=== PATIENT | male | born 1960 | race African-American/Black ===

== ENCOUNTER 2023-11-05 10:45 | Emergency (ER) | payer OTHER, MEDICARE, SELFPAY ==
[2023-11-05 10:46] VITALS: BP 131/93; PULSE 74; RESP 19; TEMP 36.4; O2SAT 98; BMI 39.8
[2023-11-05 10:51] VITALS: BP 131/93; PULSE 76; O2SAT 98
--- NOTE | 2023-11-05 10:55 | PC.NURSE ---
Dr. Cristina at bedside
--- NOTE | 2023-11-05 10:55 | PC.NURSE ---
in room talking with patient at this time.
--- NOTE | 2023-11-05 10:56 | PC.NURSE ---
DR MCNAMARA AT BEDSIDE
[2023-11-05 11:00] VITALS: BP 121/88; PULSE 74; O2SAT 97
--- NOTE | 2023-11-05 11:00 | XR_ITS ---
FINAL REPORT CLINICAL HISTORY: joint line pain and swelling FINDINGS: LEFT KNEE 3 views of the left knee were obtained. There is no acute fracture or dislocation. There are moderate degenerative changes. A moderate-sized joint effusion is seen. Visualized joint spaces are normally aligned. Soft tissues are unremarkable. IMPRESSION: No acute bony abnormality. Reviewed, Interpreted and Dictated by Ramirez Curry III, MD Transcribed by Crystal Hanna Authenticated and [facility]
--- NOTE | 2023-11-05 11:01 | ED_ITS ---
Discharge Plan Disposition Patient Disposition: Home, Self-Care Prescriptions Prescriptions: New prednisone 20 mg tablet 40 mg PO DAILY 5 Days Qty: 10 0RF diclofenac sodium [Arthritis Pain (diclofenac)] 1 % gel 2 g topical QID Qty: 100 0RF Rx Instructions: apply to single elbow, wrist or hand; for hand includes palm/fingers/back of hand Referrals Follow up/Referrals: Bharti Mesa MD [Primary Care Provider] - See instructions Activity Restrictions/Add. Instructions Additional Instructions/Restrictions: Family doctor regarding this visit to the emergency department. Prednisone each daily for 5 days. Diclofenac cream can be applied up to 4 times daily. Talk to your orthopedic surgeon for further evaluation of your left knee. Call your family doctor to establish care for this visit to the emergency department and schedule follow-up within 48 hours to ensure improvement. If you have any worsening of your condition or any other concerning signs or symptoms, return to the emergency department or your primary care doctor for further evaluation. Clinical Impressions Clinical Impression: Acute pain of left knee Discharge ED Provider: Wicho Cristina General Adult HPI General Chief complaint: Extremity Injury, Lower Stated complaint: left knee pain Time Seen by Provider: 11/05/23 10:47 History of Present Illness HPI narrative: Please note that above description of symptoms, in this electronic medical record under categorization of recalled from ER triage doctor by RN are reflective of an initial nursing assessment, however, is not reflective of my full history and physical exam that was personally taken and clarified. Consequentially, this preceding description of symptoms, which may include the patient's categorized chief complaint in the EMR, do not reflect my personal clinical impression, and the ultimate description of history of present illness and patient stated complaints should be deferred to this section of the note. Unless stated otherwise or congruent with this section of the note, additional signs, symptoms, or incongruence should be interpreted as inaccurate with my c linical impression. Related Data Previous Rx's Medication Instructions Recorded diclofenac sodium 1 % topical gel 2 g topical QID #100 grams 11/05/23 (Arthritis Pain (diclofenac)) prednisone 20 mg tablet 40 mg (2 x 20 mg) PO DAILY 5 days 11/05/23 #10 tabs Allergies Allergy/AdvReac Type Severity Reaction Status Date / Time No Known Allergies Allergy Verified 11/05/23 11:09 [facility] Disclaimer: The information contained in this section may have been updated after the patient was seen, as this information can be updated by other users. Social History Smoking Status: Former smoker alcohol intake: never current occupational status: retired Travel in the last 8 weeks: None ROS Obtained: Yes All systems reviewed & no additional complaints except as documented Physical Exam General General appearance: alert and in no apparent distress Head Head exam: atraumatic and normocephalic Eye Eye exam: Present normal appearance, PERRL and EOMI ENT ENT exam: Present mucous membranes moist Neck Neck exam: Present normal inspection, full ROM and trachea midline Respiratory Respiratory exam: Absent respiratory distress, wheezes, stridor, accessory muscle use or prolonged expiratory phase Cardiovascular Cardiovascular exam: Present normal rhythm Abdominal Exam Abdominal exam: Present soft; Absent distention, tenderness, guarding, rebound or rigidity Extremities Exam Extremities exam: Present other (Tenderness about left knee and joint space. No obvious effusion. Mildly more swollen than right side. Neurovascular and structurally intact. Range of motion intact. Patient ambulatory); Absent edema Neurological Exam Neurological exam: Present alert, oriented X3, CN II-XII intact and normal gait; Absent motor sensory deficit Skin Skin exam: Present warm and dry; Absent diaphoresis or erythema Medical Decision Making Medical Records Medical records reviewed: Yes I reviewed the patient's medical records. Roberto Inquiry Pt receiving controlled substance: No Roberto was queried for this patient: No Vital Signs: 11/05/23 10:46 11/05/23 10:51 11/05/23 11:00 Temperature 97.5 F L Temperature Source Oral Pulse Rate 76 74 Pulse Rate [Right] 74 Respiratory Rate 19 Blood Pressure 131/93 H 121/88 Blood Pressure [Right Arm] 131/93 H Blood Pressure Mean [Right Arm] 105 Blood Pressure Source [Right Arm] Automatic Cuff 02 Sat by Pulse Oximetry 98 98 97 Oxygen Delivery Method Room Air 11/05/23 11:31 Temperature Temperature Source Pulse Rate 71 Pulse Rate [Right] Respiratory Rate Blood Pressure 106/77 L Blood Pressure [Right Arm] Blood Pressure Mean [Right Arm] Blood Pressure Source [Right Arm] 02 Sat by Pulse Oximetry 98 Oxygen Delivery Method Orders (Tests/Meds): ED MEDICATIONS Discontinued Medications Generic Name Dose Route Start Last Admin Trade Name Freq PRN Reason Stop Dose Admin Prednisone 40 mg 11/05/23 11:00 11/05/23 11:10 Prednisone 20mg Tab PO 11/05/23 11:01 40 mg ONCE ONE Administration ORDERS Category Date Time Status Knee XR left 3 views [XR knee LT 3V] Stat Exams 11/05/23 11:00 Taken Medical Decision Narrative: Is a very pleasant 63-year-old male history of hypertension, PTSD, osteoarthritis having had right hip replaced, chronic left knee pain presenting with acute on chronic left knee pain. Patient states has been hurting on and off since he left the service. Was moving furniture about 2 weeks prior to this visit, did not have any immediate pain, started having pain in his left knee 2 days prior to this visit. Primarily in the joint space, no range of motion difficulties, it is mild to moderate in intensity, worse when bearing weight. Has not taken anything for the pain. Denies weakness, back pain, fevers or chills. History was obtained via conversation with patient. On arrival, patient hemodynamically stable, alert, oriented x4, appropriate, GCS 15, moving all extremities spontaneously, pupils equal and reactive to light. Full physical exam performed and significant for ambulatory male who does not appear to be in any acute distress. Neurovascular intact left lower extremity, range of motion intact. Tenderness primarily along joint space, left knee. No tenderness with patellar glide, no tenderness along patellar ligament or tendon, structurally intact and provocative testing overall negative.. Differential includes osteoarthritis, meniscus injury, malignancy, among others. Patient was given prednisone p.o. 40 mg for symptomatic management and correction of underlying abnormalities. Workup independently interpreted and significant for no acute bony abnormality of the left knee that was imaged. See radiology read for full review of final results. Given patient's history and physical exam, this most likely represents osteoarthritis. Is recommended that he follows up with his orthopedic surgeon did his hip for further evaluation for physical therapy and possible replacement if no other results with PT. Voiced his understanding. Because patient at baseline without signs or symptoms of clinical decompensation, deemed appropriate for discharge. Results were relayed to patient who voiced understanding and were agreeable to outpatient management and follow up. I discussed my clinical impression with patient and answered all questions. At this time, the evidence for any other entities in the differential is insufficient to warrant any further testing or ED observation. This was explained as well. Advisory was given that persistent or worsening symptoms require further evaluation. I confirmed the understanding of this discussion. Operations And Maintenance Specialist disclaimer Much of this encounter note is an electronic furnace room supervisor spoken language to printed text. Electronic furnace room supervisor of the spoken language may permit errors. Although I have reviewed the note, some errors may still exist. Critical Care Critical Care Time Critical Care Time: No
[2023-11-05] MEDS: predniSONE 20MG TAB 40 MG PO (11:10)
[2023-11-05 11:31] VITALS: BP 106/77; PULSE 71; O2SAT 98
--- NOTE | 2023-11-05 11:40 | PC.NURSE ---
PT TO XR
--- NOTE | 2023-11-05 11:46 | PC.NURSE ---
PT RETURNED FROM XR
--- NOTE | 2023-11-05 12:35 | PC.NURSE ---
DR MCNAMARA AT BEDSIDE TO UPDATE PT
[2023-11-05 12:37] VITALS: BP 110/64; PULSE 67; RESP 17; TEMP 36.4; O2SAT 97
== END 2023-11-05 12:38 | disposition home or self-care (01) ==
PROVIDERS: Emergency Provider Emergency Medicine; PCP Family Medicine
DX: M25.562 Pain in left knee (principal)
CPT/HCPCS: 73562; 99283

== ENCOUNTER 2025-02-28 14:00 | Outpatient (RCR) | payer OTHER, MEDICARE, SELFPAY | END 2025-02-28 23:59 | disposition home or self-care (01) | LOC: OT 14:00 | PROVIDERS: PCP Family Medicine; Visit Provider Internal Medicine | DX: M25.511 Pain in right shoulder (principal) | CPT/HCPCS: 97014; 97032; 97110; 97140; 97165; 97530; G0283 ==

== ENCOUNTER 2025-03-24 14:00 | Outpatient (RCR) | payer OTHER, MEDICARE, SELFPAY | END 2025-03-24 23:59 | disposition home or self-care (01) | LOC: OT 14:00 | PROVIDERS: PCP Family Medicine; Visit Provider Internal Medicine | DX: M25.511 Pain in right shoulder (principal) | CPT/HCPCS: 97014; 97032; 97110; 97140; G0283 ==

== ENCOUNTER 2025-04-03 11:04 | Outpatient (RCR) | payer OTHER, MEDICARE, SELFPAY | END 2025-04-03 23:59 | disposition home or self-care (01) | LOC: OT 11:04 | PROVIDERS: PCP Family Medicine; Visit Provider Internal Medicine | DX: M25.511 Pain in right shoulder (principal) ==